=== PATIENT | male | born 1960 ===

== ENCOUNTER 2017-09-17 21:11 | Emergency (ER) | payer OTHER ==
[2017-09-17 21:54] VITALS: BP 134/76; PULSE 66; RESP 20; TEMP 97; O2SAT 100
[2017-09-17] MEDS ORDERED: Tetracaine 0.5% Ophth (OR ONLY) ONE (22:25)
[2017-09-17] MEDS ORDERED: Fluorescein 1 mg Ophthalmic Strip ONE ×2 (22:25→22:58)
--- NOTE | 2017-09-17 23:36 | C.PDOC ---
History Of Present Illness Patient is a 57 y/o male who presents to the ED with a complaint of foreign body sensation to the left eye s/p drilling into a ceiling. Patient notes debris fell from the ceiling and admits irrigating eye at home without relief. No other physical complaints at this time. Time Seen by Provider: 09/17/17 22:08 Chief Complaint (Nursing): Eye Problem History Per: Patient History/Exam Limitations: no limitations Onset/Duration Of Symptoms: Hrs (earlier today) Current Symptoms Are (Timing): Still Present Injury To Eye?: No Associated Symptoms: FB Sensation (left eye) Recent travel outside of the [place]: No Past Medical History Reviewed: Historical Data, Nursing Documentation, Vital Signs Vital Signs: Last Vital Signs Temp 97 F L 09/17/17 21:50 Pulse 66 09/17/17 21:50 Resp 20 09/17/17 21:50 BP 134/76 09/17/17 21:50 Pulse Ox 100 09/18/17 01:22 - Medical History PMH: HTN Surgical History: Appendectomy (2010) Family History: States: Unknown Family Hx - Social History Hx Tobacco Use: No Hx Alcohol Use: Yes Hx Substance Use: No - Immunization History Hx Tetanus Toxoid Vaccination: No Hx Influenza Vaccination: No Hx Pneumococcal Vaccination: No Review Of Systems Eyes: Positive for: Other (FB sensation to left eye) Physical Exam - Physical Exam Appears: Well, Non-toxic, No Acute Distress Skin: Normal Color Eye(s): bilateral: PERRL, EOMI, left: Other (minimal ciliary injection; no corneal abrasion with fluorescein stain; no visualized foreign body. Visual acuity 20/25 bilaterally with glasses. ) Neurological/Psych: Oriented x3 ED Course And Treatment O2 Sat by Pulse Oximetry: 100 Progress Note: Patient's left eye irrigated. On re-eval, patient feels better after exam and is okay with going home. Patient discharged. Disposition Counseled Patient/Family Regarding: Diagnosis, Need For Followup, Rx Given - Disposition Referrals: Gilberto Sosa MD [Staff Provider] - Disposition: HOME/ ROUTINE Disposition Time: 23:34 Condition: STABLE Additional Instructions: Please follow up with EYE doctor Irrigate eye if still sensation of foreign body Return to ER if worse Instructions: Eye Foreign Body (ED) Forms: [employer] (German) - Clinical Impression Clinical Impression: Irritation of left eye, Sensation of foreign body in eye - Scribe Statement The provider has reviewed the documentation as recorded by the Scribe Zuri Bolaños All medical record entries made by the Scribe were at my direction and personally dictated by me. I have reviewed the chart and agree that the record accurately reflects my personal performance of the history, physical exam, medical decision making, and the department course for this patient. I have also personally directed, reviewed, and agree with the discharge instructions and disposition.
== END 2017-09-17 23:42 | disposition home or self-care (01) ==
LOC: C.ER 21:11
DX: H57.8 Other specified disorders of eye and adnexa (principal)